=== PATIENT | male | born 1960 | race Caucasian/White ===

== ENCOUNTER 2017-07-08 06:37 | Emergency (ER) | payer OTHER ==
[~2017-07-08] VITALS: Ht 170.2 cm; Wt 102.0 kg
[~2017-07-08 06:37] MED LIST: BACTRIM DS TAB1 EACH PO; FLUCONAZOLE100 MG PO; HUMULIN R100 UNIT/1 INJ; HYDROCHLOROTHIA25 MG PO; HYDROXYZINE HCL50 MG PO; LANTUS100 UNITS/ SUB-Q; TEMOVATE EMOLLI60 GM TOP
[2017-07-08] MEDS ORDERED: LIPITOR40 MG PO (06:56)
[2017-07-08] MEDS ORDERED: COREG3.125 MG PO (06:57)
[2017-07-08] MEDS ORDERED: CHLORTHALIDONE25 MG PO (06:58)
[2017-07-08] MEDS ORDERED: ZESTRIL40 MG PO (06:59)
[2017-07-08] MEDS ORDERED: ZITHROMAX250 MG PO (06:59)
[2017-07-08] MEDS ORDERED: LASIX20 MG PO (10:35)
--- NOTE | 2017-07-08 14:18 | EKG ---
[facility] [address] [facility] [place], [place] [address] Signed Normal sinus rhythm Possible Left atrial enlargement ST \T\ T wave abnormality, consider lateral ischemia Prolonged QT Abnormal ECG No previous ECGs available Confirmed by FREDA AVILEZ MD ([id number] on 07/08/2017 2:18:13 PM Electronically Signed By: FREDA AVILEZ MD 07/08/17 1418 PATIENT NAME: CRIS SLOANN Electrocardiogram DATE OF : 64 PHYSICIAN: FREDA AVILEZ MD REPORT #: [id number] REPORT IS CONFIDENTIAL AND NOT TO BE RELEASED WITHOUT AUTHORIZATION
== END 2017-07-08 11:00 | disposition home or self-care (01) ==
LOC: ED 06:37
DX: I10 Essential (primary) hypertension (principal); I50.9 Heart failure, unspecified; E11.9 Type 2 diabetes mellitus without complications; E78.5 Hyperlipidemia, unspecified; Z79.899 Other long term (current) drug therapy; Z79.84 Long term (current) use of oral hypoglycemic drugs; Z79.2 Long term (current) use of antibiotics
CPT/HCPCS: 36415; 71046; 71260; 80053; 83874; 83880; 84484; 85025; 85379; 93005; 93010; 99284; Q9967